=== PATIENT | female | born 2000 | race Two or more races ===

== ENCOUNTER 2019-12-17 21:28 | Emergency (ER) | payer BC ==
[2019-12-17 23:30] LABS: APPEARANCE,URINE SLIGHTLY-CLOUDY; BILIRUBIN,URINE NEGATIVE (NEGATIVE); COLOR,URINE YELLOW; GLUCOSE, URINE NEGATIVE (NEGATIVE); KETONES,URINE NEGATIVE (NEGATIVE); LEUKOCYTE ESTERASE,URINE NEGATIVE (NEGATIVE); NITRITE,URINE NEGATIVE (NEGATIVE); PROTEIN,URINE NEGATIVE (NEGATIVE); URINE SPECIFIC GRAVITY 1.019; UROBILINOGEN,URINE NEGATIVE mg/dL (<2.0)
[2019-12-17 23:34] LABS: ABSOLUTE EOSINOPHILS # (AUTO) 0.1 10^3/uL (0.0-0.6); ABSOLUTE LYMPHOCYTES (AUTO) 2.5 10^3/uL (0.5-4.7); ABSOLUTE MONOCYTES (AUTO) 0.5 10^3/uL (0.1-1.4); ABSOLUTE NEUT (AUTO) 2.7 10^3/uL (1.7-8.2); BASOPHILS % (AUTO) 0.6 % (0-2); EOSINOPHILS % (AUTO) 2.3 % (0-6); HEMATOCRIT 35.4 % (36.0-47.0); HEMOGLOBIN 11.9 g/dL (12.0-15.5); LYMPHOCYTES % (AUTO) 41.9 % (13-45); MEAN CORPUSCULAR HEMOGLOBIN 28.4 pg (27.0-33.4); MEAN CORPUSCULAR HGB CONC 33.8 g/dL (32.0-36.0); MEAN CORPUSCULAR VOLUME 84 fl (80-97); MONOCYTES % (AUTO) 8.4 % (3-13); PLATELET COUNT 289 10^3/uL (150-450); RED CELL DISTRIBUTION WIDTH 15.9 % (11.5-14.0); SEGMENTED NEUTROPHILS % (AUTO) 46.8 % (42-78); TOTAL CELLS COUNTED % (AUTO) 100 %; WHITE BLOOD COUNT 5.9 10^3/uL (4.0-10.5)
[2019-12-17 23:50] LABS: ALBUMIN 4.4 g/dL (3.5-5.0); ALKALINE PHOSPHATASE 73 U/L (38-126); ANION GAP 6 (5-19); ASPARTATE AMINO TRANSFERASE 25 U/L (14-36); BILIRUBIN,TOTAL 0.3 mg/dL (0.2-1.3); BLOOD UREA NITROGEN 11 mg/dL (7-20); CALCIUM 9.4 mg/dL (8.4-10.2); CARBON DIOXIDE 27 mmol/L (22-30); CHLORIDE 105 mmol/L (98-107); GLUCOSE 106 mg/dL (75-110); POTASSIUM 4.2 mmol/L (3.6-5.0); TOTAL PROTEIN 7.5 g/dL (6.3-8.2)
[2019-12-17] MEDS ORDERED: ACETAMINOPHEN 325 MG TABLET PO ONE (23:52)
--- NOTE | 2019-12-17 23:52 | ER Document Report ---
ED GI/ - General Chief Complaint: OB Problem (<20wks) Stated Complaint: ABDOMINAL/BACK PAIN PREG Time Seen by Provider: 12/17/19 23:35 Primary Care Provider: SUJIT AARON PA [Primary Care Provider] - Follow up as needed Notes: Patient is a 19-year-old female, with positive home tests at approximately 3 to 4 weeks gestation by last menstrual., That comes emergency department for chief complaint of pain to her lower abdomen. She states she has had intermittent pain almost daily for the past 2 weeks. She states that it hurts slightly more on the right side compared to the left as well. She denies vomiting, flank pain, dysuria, vaginal discharge, vaginal bleeding, fever/chills. She reports normal bowel movements. She started taking vitamins. She denies any surgeries or diagnosed medical history. She denies any significant pain currently but states that just a few months ago she had a sharp pain that resolved. - Related Data Allergies/Adverse Reactions: No Known Allergies Allergy (Unverified 12/17/19 22:30) Past Medical History - General Information source: Patient - Social History Smoking Status: Never Smoker Frequency of alcohol use: None Drug Abuse: None Lives with: Family Family History: Reviewed & Not Pertinent Patient has homicidal ideation: No Surgical Hx: Negative - Immunizations Immunizations up to date: Yes Hx Diphtheria, Pertussis, Tetanus Vaccination: Yes Review of Systems - Review of Systems Constitutional: No symptoms reported EENT: No symptoms reported Cardiovascular: No symptoms reported Respiratory: No symptoms reported Gastrointestinal: See HPI Genitourinary: See HPI Female Genitourinary: See HPI Musculoskeletal: No symptoms reported Skin: No symptoms reported Hematologic/Lymphatic: No symptoms reported Neurological/Psychological: No symptoms reported Physical Exam - Vital signs Vitals: Temp Pulse Resp BP Pulse Ox 97.8 F 90 16 115/60 100 12/17/19 21:36 12/17/19 21:36 12/17/19 21:36 12/17/19 21:36 12/17/19 21:36 - Notes Notes: GENERAL: Alert, interacts well. No acute distress. HEAD: Normocephalic, atraumatic. EYES: Pupils equal, round, and reactive to light. Extraocular movements intact. ENT: Oral mucosa moist, tongue midline. Oropharynx unremarkable. Airway patent. NECK: Full range of motion. Supple. Trachea midline. No lymphadenopathy. LUNGS: Clear to auscultation bilaterally, no wheezes, rales, or rhonchi. No respiratory distress. Non-tender chest wall. HEART: Regular rate and rhythm. No murmur ABDOMEN: Soft, non-tender. Non-distended. Bowel sounds present in all 4 quadrants. GENITOURINARY: Deferred EXTREMITIES: Moves all 4 extremities spontaneously. No edema, normal radial and dorsalis pedis pulses bilaterally. No cyanosis. BACK: no cervical, thoracic, lumbar midline tenderness. No saddle anesthesia, normal distal neurovascular exam. Moves all extremities in full range of motion. NEUROLOGICAL: Alert and oriented x3. Normal speech. Cranial nerves II through XII grossly intact. Strength 5/5 in all extremities. PSYCH: Normal affect, normal mood. SKIN: Warm, dry, normal turgor. No rashes or lesions noted. Course - Re-evaluation Re-evalutation: Patient alert, well-appearing, has a benign abdominal exam, unremarkable vital signs. She is not currently bleeding. CBC unremarkable, hCG is very low, ultrasound showing very tiny intrauterine with cyst on the right ovary, no torsion, no concerning findings. Patient's presentation does not suggest ectopic or acute abdomen. I discussed with patient at length. Patient states that she actually had her hCG checked a couple of days ago and it was in the 50s, this is actually appears to be downtrending by this report. I discussed with patient that this could be a developing miscarriage, she may expect to have bleeding and passage of the . However I did discuss details of this. However because I do not have these labs and patient is not certain of the levels, I strongly encouraged her to follow-up with her IC DESIGN MANAGER again to have these repeated, provide her with a copy of her ultrasound and laboratory reports. Discussed return precautions at length. Patient states appreciation and agreement. Asymptomatic, stable, well-appearing at time of discharge. - Vital Signs Vital signs: Temp Pulse Resp BP Pulse Ox 98.2 F 68 12 107/62 99 12/18/19 01:56 12/18/19 01:56 12/18/19 01:56 12/18/19 01:56 12/18/19 01:56 - Laboratory Result Diagrams: 12/17/19 23:22 12/17/19 23:22 Laboratory results interpreted by me: 12/17/19 12/17/19 12/17/19 22:45 23:22 23:22 Hgb 11.9 L Hct 35.4 L RDW 15.9 H Beta HCG, Quant 22.48 H Urine Ascorbic Acid 40 H Discharge - Discharge Clinical Impression: Abdominal cramping affecting Condition: Stable Disposition: HOME, SELF-CARE Additional Instructions: There does appear to be a tiny/early in the uterus. There is also a cyst on your right ovary which can cause some occasional pain. This is should simply go away with time. Because your numbers are decreasing I suspect that the has stopped growing in that you have a good chance of developing a miscarriage. Since I do not have these numbers tonight this is not certain however. Please follow-up in 48 to 72 hours with your IC DESIGN MANAGER with your reports and numbers to have this rechecked for continued monitoring of this . Return for any concerning symptoms including heavy bleeding, dizziness, passing out, severe pain, fever, or any other concerning symptoms. Referrals: SUJIT AARON PA [Primary Care Provider] - Follow up as needed
--- NOTE | 2019-12-18 01:29 | RADIOLOGY REPORT (SQ) ---
EXAM DESCRIPTION: US TRANSVAGINAL COMPLETED DATE/TME: 12/18/2019 00:26 CLINICAL HISTORY: 19 years, Female, right pelvic pain COMPARISON: None. TECHNIQUE: Emergent OB ultrasound LIMITATIONS: None. FINDINGS: The uterus measures 8.6 x 4.3 x 6.4 cm. The myometrium is homogenous. Endometrium measures 2 cm in thickness. There is a tiny sonolucency within the endometrial canal which could reflect very early gestational sac. This corresponds to a 5 week 0 day gestation. No yolk sac or pole. No detectable heart tones. The right ovary measures 2.5 x 2.4 x 2.3 cm. Left ovary measures 3.5 x 1.3 x 1.8 cm. Normal flow to each ovary. Probable corpus luteal cyst of the right ovary measuring 2.3 x 2.2 cm. No solid adnexal mass. Trace amount of free fluid. IMPRESSION: What is likely a very early intrauterine gestational sac, as above. Close obstetric follow-up recommended. Correlate with beta hCG levels. Probable corpus luteal cyst of the right ovary. Trace free fluid copyright 2010 [employer]- All Rights Reserved
[2019-12-18 02:00] VITALS: BP 107/62
== END 2019-12-18 02:00 | disposition home or self-care (01) ==
LOC: ER 21:28
DX: O26.91 Pregnancy related conditions, unspecified, first trimester (principal); Z3A.01 Less than 8 weeks gestation of pregnancy
CPT/HCPCS: 36415; 76817; 80053; 81001; 83690; 84702; 85025; 93976; 99284